=== PATIENT | female | born 1950 | race Caucasian/White ===

== ENCOUNTER 2016-04-26 00:08 | Observation (INO) | payer MEDICARE, MEDICAID ==
--- NOTE | 2016-04-26 00:21 | EDPRACDOC ---
- History of Present Illness Onset: SHANK STITCHER HPI: PT COMPLAINS OF SUDDEN ONSET OF "PRESSURE" IN THE LEFT SIDE OF HER CHEST THAT RADIATED UP TO HER NECK AND TEETH, STATES PAIN WAS SEVERE, ASSOC WITH SOBR AND NAUSEA. PT HAS NO HX OF CAD, HAD STRESS TEST IN JULY 2015 THAT WAS "NORMAL", EMS GAVE ASA X 4, PT STATES PAIN NOW 09/05. Chest Pain Location: Reports: Left Chest Pain Radiation: Reports: Neck Symptoms Occur: Reports: Suddenly, At Rest Cardiac Risk Factors: Reports: Smoker, Hypertension, Diabetes Cardiac History of: Reports: Similar Pain in Past, Stress Test PE Risk Factors: Reports: None Medications within 24 Hours: Reports: None Prehospital Care: Reports: O2, IV, EKG, Monitor, ASA Pain Came On: Reports: Suddenly Pain Status: Present Now Pain Description: Reports: Pressure Pain Severity: Severe Pain Worsens With: Reports: Nothing Pain Improves With: Reports: Other (ASA) Associated Signs and Symptoms: Reports: SOB, Diaphoretic, Nausea <Deshawn Barrett - Last Filed: 04/26/16 01:49> <Debbie Hatfield - Last Filed: 04/26/16 06:36> - General Information Chief Complaint: Chest Pain Stated Complaint: CHEST PAIN Time Seen by Provider: 04/26/16 00:11 Home Medications: Home Medications CloNIDine (Antihypertensive) [Catapres] 0.1 mg PO DAILY 08/26/15 Escitalopram Oxalate 20 mg PO DAILY 08/26/15 Lisinopril/Hydrochlorothiazide [Lisinopril-Hctz 20-25 mg Tab] 1 each PO DAILY Magnesium 400 mg PO DAILY 08/26/15 MetFORMIN (Immediate Release) [GLUCOPHAGE Immed Release] 500 mg PO DAILY Metoprolol Succinate [Toprol Xl] 100 mg PO DAILY 08/26/15 Omeprazole 40 mg PO DAILY 08/26/15 Ondansetron [Ondansetron Odt] 8 mg PO Q8H PRN 08/26/15 Alprazolam 1 mg PO TID 08/27/15 Gabapentin 300 mg PO TID 08/27/15 Oxycodone HCl [Roxicodone] 5 mg PO Q6 08/27/15 Pramipexole Di-HCl [Pramipexole Dihydrochloride] 1 mg PO DAILY 08/27/15 Escitalopram Oxalate [Lexapro] 20 mg PO DAILY 04/26/16 Multivitamin [One Daily] 1 each PO DAILY 04/26/16 Allergies/Adverse Reactions: Allergies Allergy/AdvReac Type Severity Reaction Status Date / Time codeine Allergy See Verified 04/26/16 00:17 Comments hydromorphone HCl Allergy Nausea/Vomi Verified 04/26/16 00:17 [From Dilaudid] ting ED Past Medical History - History Reviewed Yes Nurses notes reviewed and agree except as marked - Patient Medical History Cardiac History: Reports: Hypertension, Hypercholesterolemia. Denies: Congestive Heart Failure, Heart Attack Respiratory History: Reports: COPD (possible diagnosis. Does not use inhalers.) , Pneumonia. Denies: Pulmonary Embolism GI/ History: Reports: Urinary Tract Infection, Gastroesophageal Reflux. Denies: Ulcer, Diverticulosis Musculoskeletal History: Reports: Arthritis Psychological History: Reports: Depression, Anxiety. Denies: Substance Use Disorder Systemic History: Reports: Cancer (COLON. Stage IV, dx 2012. Dr. Gillette. FOLFOX /Avastin, resection 2012.), Diabetes Surgical History: Reports: Cholecystectomy, Hysterectomy, Tonsillectomy/ Adnoidectomy, Other (Colon cancer resection. Thoracotomy lung mets removed 2013. ) Date of Last Radiation Treatment: NOV 2012 Date of Last Chemotherapy Date: NOV 2012 - Family Medical History Reports: Hypertension, Diabetes, Cancer (Father: colon cancer. Mother: liver cancer.), Cardiac Disorders. Denies: Stroke - Social Medical History Smoking Status: Heavy tobacco smoker (5 or more cigarettes/day or daily pipe/ cigar) (Smoker; previously cigarettes but now only vapor e-cigarettes.) Social History: Denies: Substance Use Disorder ETOH: None Substance Abuse: None <Deshawn Barrett - Last Filed: 04/26/16 01:49> EDM Review of Systems - Review of Systems Constitutional: negative: Chills, Fever Eyes: negative: Blurred Vision, Double Vision Ears: negative: Drainage Throat: negative: Pain Nose: negative: Congestion, Discharge Respiratory: Shortness of Breath. negative: Cough, Wheezing Cardiovascular: Chest Pain. negative: Palpitations Gastrointestinal: Nausea. negative: Diarrhea, Pain, Vomiting Genitourinary: negative: Dysuria, Frequency Neurological: negative: Dizziness, Headache, Numbness, Weakness Musculoskeletal: No Symptoms Reported Integumentary: No Symptoms Reported <Deshawn Barrett - Last Filed: 04/26/16 01:49> - Physical Exam Constitutional: Alert (Awake), No apparent distress Oriented to: Time, Person, Place Last recorded Vital Signs: Oxygen Pulse Oxygen Saturation O2 Device Oxygen Flow Rate Fraction of Inspired Oxygen ( FIO2) - HEENT Head: Normal ( normocephalic) Eye Exam: Normal (PERRL, EOMI, Sclera white) Oropharynx: Normal (Pharynx:Moist without exudate,Gums-no swelling) Tympanic Membrane: Normal ENT EAC: Normal TMJ: Normal Nose: No Symptoms Reported (septum midline) Neck: Normal (FROM, trachea at midline) - Respiratory/Cardiovascular Respiratory: Normal - CTA (BBS clear to auscultation without adventitious sounds ) Cardiovascular: Normal (RRR without murmur, gallop or rub) - GI Auscultation: Normal (NABS) Palpation: Normal (Soft,No rebound or guarding, non distended) Tenderness: Non tender Key's Sign: Negative - Musculoskeletal Back: Normal (Non-Tender) Extremities: Normal (Normal tone, Pulses 2+ No cyanosis or edema, FROM) - Integumentary Skin: Normal, Warm, Dry Lymphatics: Normal (no adenopathy) - Neurologic Memory Impaired: Normal Motor Function: Normal (Normal tone, Pulses 2+ No cyanosis or edema, FROM) Cranial Nerve: Normal (CN II-X11 intact sensation, strength 5/5) Cerebellar: Normal Mood Description: Normal Perception: Normal <BarrettDeshawn - Last Filed: 04/26/16 01:49> - Physical Exam Last recorded Vital Signs: Last Vital Signs Temp 98.6 F 04/26/16 00:17 Pulse 69 04/26/16 03:55 Resp 20 04/26/16 03:55 BP 141/64 04/26/16 03:55 Pulse Ox 94 04/26/16 03:55 Oxygen Pulse Oxygen Saturation 94 O2 Device Room Air Oxygen Flow Rate Fraction of Inspired Oxygen ( FIO2) <Debbie Hatfield - Last Filed: 04/26/16 06:36> ED Chest Pain Exam - Respiratory/Cardiovascular Respiratory: Normal - CTA (clear to auscultation without adventitious sounds) Cardiovascular/Chest: Normal (RRR without murmur, gallop or rub) Radial Pulse: Normal Carotid Arteries: Normal Edema: negative: 1+, 2+, 3+, 4+, 5, 6 Chest Palpation: Normal <BarrettDeshawn - Last Filed: 04/26/16 01:49> - Differential Diagnosis Chest wall pain, Costochondritis, Gastritis, Myocardial infarction, Pericarditis , Pancreatitis, Pneumonia - Action Patient received Aspirin within last 24 hours?: Yes ASA given in the ED: Yes Patient received Beta Luis Armando within last 24hrs: Yes - Re-evaluation Re-evaluation 1 Re-evaluation Time: 01:13 (PAIN NOW 05/08, PT HAS NOT BEEN ON ORAL CHEMO FOR SEVERAL WEEKS, STATES IS SUPPOSED TO START BACK NEXT WEEK) - Results 04/26/16 00:16 04/26/16 00:16 04/26/16 01:13 Laboratory Results - last 24 hr 04/26/16 04/26/16 04/26/16 00:16 00:16 00:16 WBC 7.6 RBC 4.83 Hgb 14.4 Hct 43.7 MCV 90 MCH 29.8 MCHC 32.9 L RDW 15.7 H Plt Count 289 MPV 8.0 Neut % (Auto) 80.0 H Lymph % (Auto) 17.5 [place] % (Auto) 1.6 L Eos % (Auto) 0.1 Baso % (Auto) 0.8 Absolute Neuts (auto) 6.08 Absolute Lymphs (auto) 1.29 PT 9.9 INR 1.0 APTT 26.8 Sodium 136 L Potassium 4.4 Chloride 100 Carbon Dioxide 22 Anion Gap 18 H BUN 14 Creatinine 0.60 Estimated GFR (MDRD) > 60 Glucose 464 H* Calculated Osmolality 283 Calcium 9.6 Total Bilirubin 0.4 AST 42 H ALT 41 Alkaline Phosphatase 127 Troponin I < 0.01 Bzx-H-Lvirwywtsax Pept 267 Total Protein 8.1 Albumin 4.3 Lipase 126 - EKG EKG #1 EKG Time: 00:18 -: Yes EKG interpreted by me Rate: bpm: 101 [place]: Normal Rhythm: ST Block: None Hypertrophy: None ST: Nonsp Comparison: 08/26/15 (NO CHANGE) - Diagnostic Imaging CXR Image interpreted by: Radiologist PORTABLE CHEST 1 VIEW COMPARISON: Chest radiograph performed 08/26/2015, and CT of the chest performed 08/27/2015 FINDINGS: The lungs are well-aerated. Masses at the left lung apex and right lung base appear to have increased in size, measuring 3.1 cm at the left lung apex and 2.4 cm at the right lung base. There is no evidence of pleural effusion or pneumothorax. The cardiomediastinal silhouette is within normal limits. No acute osseous abnormalities are seen. A right-sided chest port is noted ending about the distal SVC. IMPRESSION: Apparent increase in size of left lung apex and right basilar masses, measuring 3.1 cm and 2.4 cm, respectively. These are concerning for worsening metastatic disease, as noted on prior CT from July 2015. Would follow-up with Oncology. These results were called by telephone at the time of interpretation on 04/26/2016 at 1:17 am to DESHAWN ROBLEDO, who verbally acknowledged these results. - Additional Information OLD RECORDS REVIEWED, PT HAD NL CARDIOLITE STRESS TEST IN JULY 2015. DISCUSSED WITH DR HATFIELD, CARE ENDORSED TO HER PENDING RESULTS OF 2ND SET OF CARDIAC ENZYMES, ANTICIPATE DISCHARGE AFTER BLOOD SUGAR CONTROL AND IF 2ND SET OF ENZYMES NEG. <Deshawn Barrett - Last Filed: 04/26/16 01:49> - Results 04/26/16 00:16 04/26/16 00:16 WBC 7.6 xk/uL (3.8-10.8) 04/26/16 00:16 RBC 4.83 xM/uL (4.20-5.40) 04/26/16 00:16 Hgb 14.4 g/dL (12.0-16.0) 04/26/16 00:16 Hct 43.7 % (36-47) 04/26/16 00:16 MCV 90 fL (81-99) 04/26/16 00:16 MCH 29.8 pg (27-32) 04/26/16 00:16 MCHC 32.9 g/dl (33-36) L 04/26/16 00:16 RDW 15.7 % (11.5-14.5) H 04/26/16 00:16 Plt Count 289 xk/uL (130-400) 04/26/16 00:16 MPV 8.0 fL (7.4-10.4) 04/26/16 00:16 Neut % (Auto) 80.0 % (45-76) H 04/26/16 00:16 Lymph % (Auto) 17.5 % (17-44) 04/26/16 00:16 [place] % (Auto) 1.6 % (3-10) L 04/26/16 00:16 Eos % (Auto) 0.1 % (0-5) 04/26/16 00:16 Baso % (Auto) 0.8 % (0-2) 04/26/16 00:16 Absolute Neuts (auto) 6.08 xk/uL (1.7-8.2) 04/26/16 00:16 Absolute Lymphs (auto) 1.29 xk/uL (0.65-4.75) 04/26/16 00:16 PT 9.9 SEC (9.2-11.2) 04/26/16 00:16 INR 1.0 04/26/16 00:16 APTT 26.8 SEC (22-35) 04/26/16 00:16 Sodium 136 mEq/L (137-146) L 04/26/16 00:16 Potassium 4.4 mEq/L (3.5-5.1) 04/26/16 00:16 Chloride 100 mEq/L (98-107) 04/26/16 00:16 Carbon Dioxide 22 mMOL/L (22-33) 04/26/16 00:16 Anion Gap 18 mEq/L (8-16) H 04/26/16 00:16 BUN 14 MG/DL (7-17) 04/26/16 00:16 Creatinine 0.60 MG/DL (0.52-1.04) 04/26/16 00:16 Estimated GFR (MDRD) > 60 mL/min (>=60) 04/26/16 00:16 Glucose 464 MG/DL (70-99) H* 04/26/16 00:16 POC Capillary Glucose 321 MG/DL (70-99) H 04/26/16 02:01 Calculated Osmolality 283 MOs/Kg (270-290) 04/26/16 00:16 Calcium 9.6 MG/DL (8.4-10.2) 04/26/16 00:16 Total Bilirubin 0.4 MG/DL (0.2-1.3) 04/26/16 00:16 AST 42 IU/L (14-36) H 04/26/16 00:16 ALT 41 IU/L (9-52) 04/26/16 00:16 Alkaline Phosphatase 127 IU/L (55-165) 04/26/16 00:16 Troponin I 0.07 ng/mL (<.04) 04/26/16 03:18 Txg-K-Xhgtzngbyfw Pept 267 pg/mL (0-900) 04/26/16 00:16 Total Protein 8.1 G/DL (6.3-8.2) 04/26/16 00:16 Albumin 4.3 G/DL (3.5-5.0) 04/26/16 00:16 Lipase 126 U/L (23-300) 04/26/16 00:16 Lab Results 04/26/16 04/26/16 04/26/16 03:18 02:01 00:16 WBC RBC Hgb Hct MCV MCH MCHC RDW Plt Count MPV Neut % (Auto) Lymph % (Auto) [place] % (Auto) Eos % (Auto) Baso % (Auto) Absolute Neuts (auto) Absolute Lymphs (auto) PT 9.9 INR 1.0 APTT 26.8 Sodium Potassium Chloride Carbon Dioxide Anion Gap BUN Creatinine Estimated GFR (MDRD) Glucose POC Capillary Glucose 321 H Calculated Osmolality Calcium Total Bilirubin AST ALT Alkaline Phosphatase Troponin I 0.07 Sfs-I-Djkoeylxfzj Pept Total Protein Albumin Lipase 04/26/16 04/26/16 00:16 00:16 WBC 7.6 RBC 4.83 Hgb 14.4 Hct 43.7 MCV 90 MCH 29.8 MCHC 32.9 L RDW 15.7 H Plt Count 289 MPV 8.0 Neut % (Auto) 80.0 H Lymph % (Auto) 17.5 [place] % (Auto) 1.6 L Eos % (Auto) 0.1 Baso % (Auto) 0.8 Absolute Neuts (auto) 6.08 Absolute Lymphs (auto) 1.29 PT INR APTT Sodium 136 L Potassium 4.4 Chloride 100 Carbon Dioxide 22 Anion Gap 18 H BUN 14 Creatinine 0.60 Estimated GFR (MDRD) > 60 Glucose 464 H* POC Capillary Glucose Calculated Osmolality 283 Calcium 9.6 Total Bilirubin 0.4 AST 42 H ALT 41 Alkaline Phosphatase 127 Troponin I < 0.01 Kjm-U-Dlafsngjwpy Pept 267 Total Protein 8.1 Albumin 4.3 Lipase 126 Laboratory Results - last 24 hr 04/26/16 04/26/16 04/26/16 00:16 00:16 00:16 WBC 7.6 RBC 4.83 Hgb 14.4 Hct 43.7 MCV 90 MCH 29.8 MCHC 32.9 L RDW 15.7 H Plt Count 289 MPV 8.0 Neut % (Auto) 80.0 H Lymph % (Auto) 17.5 [place] % (Auto) 1.6 L Eos % (Auto) 0.1 Baso % (Auto) 0.8 Absolute Neuts (auto) 6.08 Absolute Lymphs (auto) 1.29 PT 9.9 INR 1.0 APTT 26.8 Sodium 136 L Potassium 4.4 Chloride 100 Carbon Dioxide 22 Anion Gap 18 H BUN 14 Creatinine 0.60 Estimated GFR (MDRD) > 60 Glucose 464 H* POC Capillary Glucose Calculated Osmolality 283 Calcium 9.6 Total Bilirubin 0.4 AST 42 H ALT 41 Alkaline Phosphatase 127 Troponin I < 0.01 Umt-G-Miwkzowovvb Pept 267 Total Protein 8.1 Albumin 4.3 Lipase 126 04/26/16 04/26/16 02:01 03:18 WBC RBC Hgb Hct MCV MCH MCHC RDW Plt Count MPV Neut % (Auto) Lymph % (Auto) [place] % (Auto) Eos % (Auto) Baso % (Auto) Absolute Neuts (auto) Absolute Lymphs (auto) PT INR APTT Sodium Potassium Chloride Carbon Dioxide Anion Gap BUN Creatinine Estimated GFR (MDRD) Glucose POC Capillary Glucose 321 H Calculated Osmolality Calcium Total Bilirubin AST ALT Alkaline Phosphatase Troponin I 0.07 Ust-X-Dmwknaeqdqe Pept Total Protein Albumin Lipase Laboratory Results 04/26/16 00:16 04/26/16 00:16 - Diagnostic Imaging Other Image interpreted by: Radiologist CT CHEST: 1. No evidence of pulmonary embolus. 2. Enlarging multilobulated lung masses seen bilaterally, measuring up to 3.4 cm in size. These are compatible with worsening metastatic disease from the patient's colon cancer. 3. Diffuse coronary artery calcifications seen. <Debbie Hatfield - Last Filed: 04/26/16 06:36> <Deshawn Barrett - Last Filed: 04/26/16 01:49> - Departure Yes I personally saw and evaluated the patient. Disposition: Admit IP To This Hospital Education/Counseling Given To: Patient, Family Member Education/Counseling Given Regarding: Diagnosis, Treatment Decision to Admit Time: 04:00 Decision to admit date: 04/26/16 Decision to admit: from ED - Physician Consulted Hospitalist Provider Called: Abner Brown <Debbie Hatfield - Last Filed: 04/26/16 06:36> - Departure Condition: Stable Final Diagnosis: Chest pain, Diabetes mellitus type 2, uncontrolled, RUIZ ZONE TROPONIN, Metastatic colon cancer in female, Coronary artery calcification seen on CT scan , WORSENING OF LUNG METS
[2016-04-26] MEDS ORDERED: METOPROLOL TARTRATE 25 MG TAB PO ONE (00:22)
[2016-04-26] MEDS ORDERED: SODIUM CHLORIDE 0.9% 10 ML FLUSH FLUSH PRN (00:22)
[2016-04-26] MEDS ORDERED: NITROGLYCERINE 2 % OINTMENT PACK TOP ONE (00:22)
[2016-04-26 00:33] LABS: AUTOMATED BASOPHIL 0.8 % (0-2); AUTOMATED EOSINOPHIL 0.1 % (0-5); AUTOMATED LYMPH 17.5 % (17-44); AUTOMATED MONOCYTE 1.6 % (3-10)
[2016-04-26 00:42] LABS: BLOOD UREA NITROGEN 14 MG/DL (7-17); CALCIUM 9.6 MG/DL (8.4-10.2); CALCULATED OSMOLALITY 283 MOs/Kg (270-290); CHLORIDE 100 mEq/L (98-107); SODIUM LEVEL 136 mEq/L (137-146); TOTAL PROTEIN 8.1 G/DL (6.3-8.2)
[2016-04-26] MEDS ORDERED: REGULAR INSULIN 100 UNITS/ML - 3 ML VIAL IV ONE ×2 (00:47→03:01)
[2016-04-26 00:49] LABS: GLUCOSE 464 MG/DL (70-99)
[2016-04-26 00:50] LABS: PARTIAL THROMB. TIME 26.8 SEC (22-35)
--- NOTE | 2016-04-26 01:20 | DIRPT ---
CLINICAL DATA: Acute onset of left-sided chest pressure, radiating to the neck. Shortness of breath and nausea. Initial encounter. EXAM: PORTABLE CHEST 1 VIEW COMPARISON: Chest radiograph performed 08/26/2015, and CT of the chest performed 08/27/2015 FINDINGS: The lungs are well-aerated. Masses at the left lung apex and right lung base appear to have increased in size, measuring 3.1 cm at the left lung apex and 2.4 cm at the right lung base. There is no evidence of pleural effusion or pneumothorax. The cardiomediastinal silhouette is within normal limits. No acute osseous abnormalities are seen. A right-sided chest port is noted ending about the distal SVC. IMPRESSION: Apparent increase in size of left lung apex and right basilar masses, measuring 3.1 cm and 2.4 cm, respectively. These are concerning for worsening metastatic disease, as noted on prior CT from July 2015. Would follow-up with Oncology. These results were called by telephone at the time of interpretation on 04/26/2016 at 1:17 am to BIBIANA ROBLEDO, who verbally acknowledged these results. Electronically Signed By: Dimitris Grey M.D. On: 04/26/2016 01:17
--- NOTE | 2016-04-26 04:13 | HISTPHYS ---
- Chief Complaint chest pain - History of Present Illness PRIMARY CARE PROVIDER: Sunita Burgos and Desiree Stephens at [facility] HPI: The patient is a 65-year-old woman with colon cancer, diabetes, smoker, hypertension, who presents with acute chest pain. She reports that last night ( several hours ago) she developed severe chest pain and said "it took my breath away." She had diaphoresis and shortness of breath with the chest pain. The chest pain was so severe that she could not even stand up. Onset: overnight. Duration: intermittent. Location: substernal. Radiation: to neck and jaw. Character: 12/06. Pressure and dull sensation. Alleviated by: Nothing. Exacerbated by: Nothing. Associated Symptoms: Shortness of breath and diaphoresis. No palpitations. She reports she has had a "cold" for about 2 months, with coughing productive of yellow sputum and dyspnea on exertion, but this shortness of breath today was much different and more severe. Treatments: none at home except usual medications. Given aspirin 81 mg x 4 tabs by EMS prior to arrival. The patient admits that she has colon cancer with history of mets to the lungs, for which she had a thoracotomy in 2013. She had been followed at [facility] for her oncology care, and was taking an oral chemotherapeutic agent until 01/2015, when she stopped it on her own. She said she stopped it because it made her feel bad, and she wanted to live life, go see her friends in [place]. She just never started the medication back and has been off of it ever since. She states she would like to restart treatment for her colon cancer and would like to establish care with Dr. Gonzalez as her oncologist. - Medical History Cardiac History: Reports: Hypertension, Hypercholesterolemia Respiratory History: Reports: COPD (possible diagnosis. Does not use inhalers.) , Pneumonia (and resection of lung mets from both lungs 2013.) GI/ History: Reports: Urinary Tract Infection, Gastroesophageal Reflux Musculoskeletal History: Reports: Arthritis Systemic History: Reports: Cancer (COLON. Stage IV, dx 2012. FOLFOX/Avastin, resection 2012.), Diabetes (Type 2) Psychological History: Reports: Depression, Anxiety. Denies: Substance Use Disorder OTHER HISTORY: Restless Leg Syndrome Colon cancer: Stage IV, diagnosed 2012. Followed by [facility] in past but stopped following up and stopped her medication. FOLFOX/Avastin, then resection 2012. Residual low grade adenocarcinoma with 04/08 nodes positive. Lung metastasis. Thoracotomy with resection of 3 pulmonary nodules 2013. * 2 sections of lung removed on one side and 1 on other removed; tumors. 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 - Surgical History Reports: Cholecystectomy, Hysterectomy, Tonsillectomy/Adnoidectomy, Other ( Colon cancer resection. Thoracotomy B/L lung mets removed 2013.) - Medictions/Allergies Allergies codeine Allergy (Verified 04/26/16 00:17) See Comments "WEAK" hydromorphone HCl [From Dilaudid] Allergy (Verified 04/26/16 00:17) Nausea/Vomiting Current Medication List: Reviewed Home Medications Capecitabine [Xeloda] 500 mg PO .ASDIRECTED 08/26/15 Citalopram Hydrobromide [Citalopram HBr] 40 mg PO DAILY 08/26/15 CloNIDine (Antihypertensive) [Catapres] 0.1 mg PO DAILY 08/26/15 Escitalopram Oxalate 20 mg PO DAILY 08/26/15 Lisinopril/Hydrochlorothiazide [Lisinopril-Hctz 20-25 mg Tab] 1 each PO DAILY Magnesium 400 mg PO DAILY 08/26/15 MetFORMIN (Immediate Release) [GLUCOPHAGE Immed Release] 500 mg PO DAILY Metoprolol Succinate [Toprol Xl] 100 mg PO DAILY 08/26/15 Omeprazole 40 mg PO DAILY 08/26/15 Ondansetron [Ondansetron Odt] 8 mg PO Q8H PRN 08/26/15 Trimethoprim-Sulfamethoxazole [Septra DS] 1 tabs PO BID 08/26/15 Alprazolam 1 mg PO TID 08/27/15 Gabapentin 300 mg PO TID 08/27/15 Oxycodone HCl [Roxicodone] 5 mg PO Q6 08/27/15 Pramipexole Di-HCl [Pramipexole Dihydrochloride] 1 mg PO DAILY 08/27/15 - Family History Reports: Hypertension, Diabetes, Cancer (Father: colon cancer. Mother: liver cancer.), Cardiac Disorders. Denies: Stroke - Social History Smoking Status: Heavy tobacco smoker (5 or more cigarettes/day or daily pipe/ cigar) (Smoker; previously cigarettes but now only vapor e-cigarettes.) Social History: Denies: Alcohol Use, Substance Use Disorder - Review of Systems GENERAL: No Fever, chills. Positive for diaphoresis. Positive for fatigue/ malaise. HEENT: No ear pain or discharge. No nasal bleeding but has nasal discharge. No throat pain or swelling. No eye pain or eye redness. RESPIRATORY: Cough, wheezing, and shortness of breath. CARDIOVASCULAR: Chest pain. No palpitations. GI: Chronic diarrhea. No abdominal pain, nausea, vomiting, constipation, or bloody stool. NEUROLOGICAL: No headache or focal weakness. INTEGUMENT: no rashes, itching, or lesions. LYMPHATIC SYSTEM: no lymph node swelling or pain. MUSCULOSKELETAL: no pain or joint swelling. GENITOURINARY: No dysuria or hematuria. ENDOCRINE: No polyuria but has polydipsia. HEME: No chronic anemia, bleeding, or easy bruising. - Physical Exam Vital Signs: Initial Vitals Temperature 98.6 F 04/26/16 00:17 Pulse Rate 104 04/26/16 00:17 Respiratory Rate 22 04/26/16 00:17 Blood Pressure 184/74 H 04/26/16 00:17 Pulse Oxygen Saturation 94 04/26/16 00:17 Vital Signs - 24 hr 04/26/16 04/26/16 04/26/16 00:17 00:30 00:45 Temperature 98.6 F Pulse Rate 104 89 87 Respiratory 22 20 20 Rate Blood Pressure 184/74 H 155/67 163/63 Pulse Oxygen 94 93 93 Saturation 04/26/16 04/26/16 04/26/16 01:00 01:15 01:46 Temperature Pulse Rate 87 97 77 Respiratory 20 20 20 Rate Blood Pressure 164/67 162/72 138/67 Pulse Oxygen 93 94 94 Saturation 04/26/16 04/26/16 04/26/16 02:03 02:34 03:18 Temperature Pulse Rate 74 65 77 Respiratory 20 20 20 Rate Blood Pressure 149/69 111/58 L 136/59 L Pulse Oxygen 95 94 94 Saturation 04/26/16 03:55 Temperature Pulse Rate 69 Respiratory 20 Rate Blood Pressure 141/64 Pulse Oxygen 94 Saturation Weight: 92 kg Height: 5 feet 5 inches BMI: 33.8 - Other Exam Other Exam Findings: GENERAL: Ill-appearing, well nourished, no acute distress. HEENT: Normocephalic, atraumatic; pupils equal and round. Nares patent, without discharge or bleeding. No oropharyngeal lesions or erythema. Mucous membranes are dry. NECK: is supple, no masses, trachea midline. Large neck circumference. RESPIRATORY: Clear to auscultation bilaterally. Chest wall movements are symmetric. No use of accessory muscles to breathe. Intermittent tachypnea. Decreased breath sounds bilaterally. Intermittent wheezing. Scattered coarse breath sounds. CARDIOVASCULAR: Normal S1, S2. No murmurs, rubs, or gallops. PMI non-displaced. Carotids: no carotid bruits. No bradycardia or tachycardia. DP pulses 2+ bilaterally. GI: soft, non-tender, non-distended, normal active bowel sounds. No hepatosplenomegaly. INTEGUMENT: Clean, dry, and intact. No rashes. No lesions. MUSCULOSKELETAL: Moving all extremities. No cyanosis. No clubbing. Edema: none bilaterally. NEUROLOGICAL: Cranial nerves 2-12 grossly intact. Motor 5/5 throughout. Reflexes : 2+ bilaterally. Babinski: toes downgoing bilaterally. Intact Finger to nose. Sensory grossly intact to light touch. Intact rapid alternating movements bilaterally. No pronator drift. PSYCHIATRIC: Fully oriented. Normal and appropriate affect. LYMPHATIC: No cervical lymphadenopathy. No supraclavicular lymphadenopathy. - Lab Results Laboratory Results - last 24 hr 04/26/16 04/26/16 04/26/16 00:16 00:16 00:16 WBC 7.6 RBC 4.83 Hgb 14.4 Hct 43.7 MCV 90 MCH 29.8 MCHC 32.9 L RDW 15.7 H Plt Count 289 MPV 8.0 Neut % (Auto) 80.0 H Lymph % (Auto) 17.5 [place]asta % (Auto) 1.6 L Eos % (Auto) 0.1 Baso % (Auto) 0.8 Absolute Neuts (auto) 6.08 Absolute Lymphs (auto) 1.29 PT 9.9 INR 1.0 APTT 26.8 Sodium 136 L Potassium 4.4 Chloride 100 Carbon Dioxide 22 Anion Gap 18 H BUN 14 Creatinine 0.60 Estimated GFR (MDRD) > 60 Glucose 464 H* POC Capillary Glucose Calculated Osmolality 283 Calcium 9.6 Total Bilirubin 0.4 AST 42 H ALT 41 Alkaline Phosphatase 127 Troponin I < 0.01 Awj-C-Vqxhgzikglf Pept 267 Total Protein 8.1 Albumin 4.3 Lipase 126 04/26/16 04/26/16 02:01 03:18 WBC RBC Hgb Hct MCV MCH MCHC RDW Plt Count MPV Neut % (Auto) Lymph % (Auto) [place]asta % (Auto) Eos % (Auto) Baso % (Auto) Absolute Neuts (auto) Absolute Lymphs (auto) PT INR APTT Sodium Potassium Chloride Carbon Dioxide Anion Gap BUN Creatinine Estimated GFR (MDRD) Glucose POC Capillary Glucose 321 H Calculated Osmolality Calcium Total Bilirubin AST ALT Alkaline Phosphatase Troponin I 0.07 Oeg-V-Anvrgmbbidz Pept Total Protein Albumin Lipase - Diagnostic Findings EK bpm. Sinus tachycardia. Incomplete right bundle branch block. Cannot rule out inferior infarct, age undetermined. T wave inversion with slight ST depression in 3. Minimal ST depression in aVF, V4, and V5. Reviewed EKG personally. Chest x-ray, viewed personally: EXAM: PORTABLE CHEST 1 VIEW COMPARISON: Chest radiograph performed 08/26/2015, and CT of the chest performed 08/27/2015 FINDINGS: The lungs are well-aerated. Masses at the left lung apex and right lung base appear to have increased in size, measuring 3.1 cm at the left lung apex and 2.4 cm at the right lung base. There is no evidence of pleural effusion or pneumothorax. The cardiomediastinal silhouette is within normal limits. No acute osseous abnormalities are seen. A right-sided chest port is noted ending about the distal SVC. IMPRESSION: Apparent increase in size of left lung apex and right basilar masses, measuring 3.1 cm and 2.4 cm, respectively. These are concerning for worsening metastatic disease, as noted on prior CT from July 2015. Would follow-up with Oncology. These results were called by telephone at the time of interpretation on 04/26/2016 at 1:17 am to BIBIANA ROBLEDO, who verbally acknowledged these results. - Assessment (1) Chest pain R07.9 - CHEST PAIN, UNSPECIFIED Acute Present on Admission: Yes Qualifiers: Chest pain type: unspecified Ischemic chest pain type: I Qualified Code(s ): R07.9 - Chest pain, unspecified Rule out myocardial infarction. Will also check D-dimer and if positive obtain CTA; patient is at increased risk of PE due to neoplastic disease. Plan: Obtain cardiac enzymes x 3. Place patient on telemetry. Give patient oxygen, aspirin. Give nitroglycerin, and morphine as needed for chest pain. Give statin. Stress test has been ordered for the morning. Patient has been advised, if the stress test is negative, to follow up with the primary care provider for evaluation of other potential causes of the chest pain. (2) Neoplasm of uncertain behavior of lung D38.1 - NEOPLASM OF UNCERTAIN BEHAVIOR OF TRACHEA, BRONCHUS AND LUNG Acute Present on Admission: Yes Enlarging and worsening masses noted in lungs on chest x-ray. IMPRESSION: Apparent increase in size of left lung apex and right basilar masses, measuring 3.1 cm and 2.4 cm, respectively. These are concerning for worsening metastatic disease, as noted on prior CT from July 2015. Would follow-up with Oncology. Plan: Follow up with Oncology. 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 Check fingerstick blood sugars q ac and hs. Sliding scale insulin. Ordered A1c and urine microalbumin. (4) Metastatic colon cancer in female C78.5 - SECONDARY MALIGNANT NEOPLASM OF LARGE INTESTINE AND RECTUM Acute Present on Admission: Yes Plan: Continue follow-up with Oncology. Patient would like to establish care with Dr. Gonzalez - need to obtain an appointment for her. - Plan NOTE: CTA OF CHEST IS ORDERED BUT HAS NOT RESULTED AT THE TIME OF PATIENT'S ADMISSION. WILL RULE OUT PE. Case Care Discussed with: Patient, Nursing Staff
[2016-04-26] MEDS ORDERED: Pharmacy Review for Metformin - IV Contrast Given SCH (05:00)
--- NOTE | 2016-04-26 06:33 | DIRPT ---
CLINICAL DATA: Acute onset of generalized chest pain. Elevated D-dimer. Known stage IV colon cancer, with lung metastases. Initial encounter. EXAM: CT ANGIOGRAPHY CHEST WITH CONTRAST TECHNIQUE: Multidetector CT imaging of the chest was performed using the standard protocol during bolus administration of intravenous contrast. Multiplanar CT image reconstructions and MIPs were obtained to evaluate the vascular anatomy. CONTRAST: 70 mL of Isovue 370 IV contrast COMPARISON: CT of the chest performed 08/27/2015, and chest radiograph performed earlier today at 12:39 a.m. FINDINGS: There is no evidence of pulmonary embolus. Enlarging multilobulated masses are noted, with a 3.4 cm mass at the left lung apex, a 2.8 cm mass at the right lower lobe, a 2.4 cm mass at the left lower lobe, and additional smaller nodules within the right lung. These are compatible with metastatic disease from the patient's colon cancer. The lungs are otherwise clear. There is no evidence of significant focal consolidation, pleural effusion or pneumothorax. Visualized mediastinal nodes remain normal in size, without evidence of mediastinal lymphadenopathy. No pericardial effusion is identified. The great vessels are grossly unremarkable in appearance. Diffuse coronary artery calcifications are seen. The patient's right-sided chest port is noted ending about the cavoatrial junction. The great vessels are grossly unremarkable in appearance. No axillary lymphadenopathy is seen. The visualized portions of the thyroid gland are unremarkable in appearance. The visualized portions of the liver and spleen are unremarkable. The visualized portions of the pancreas, stomach, adrenal glands and left kidney are within normal limits. No acute osseous abnormalities are seen. Review of the MIP images confirms the above findings. IMPRESSION: 1. No evidence of pulmonary embolus. 2. Enlarging multilobulated lung masses seen bilaterally, measuring up to 3.4 cm in size. These are compatible with worsening metastatic disease from the patient's colon cancer. 3. Diffuse coronary artery calcifications seen. Electronically Signed By: Dimitris Grey M.D. On: 04/26/2016 06:31
[2016-04-26] MEDS ORDERED: NITROGLYCERINE 0.4 MG TAB SL PRN (06:36)
[2016-04-26] MEDS ORDERED: MORPHINE 2 MG/ML INJECTION IV PRN (06:37)
[2016-04-26] MEDS ORDERED: BENZONATATE 100 MG PERLES PO PRN (07:01)
[2016-04-26] MEDS ORDERED: GUAIFEN 100 MG-DEXTROMETH 10 MG PER 5 ML PO PRN (07:01)
[2016-04-26] MEDS ORDERED: ONDANSETRON HCL 4 MG/2 ML VIAL IV PRN (07:01)
[2016-04-26] MEDS ORDERED: TEMAZEPAM 15 MG CAP PO PRN (07:01)
[2016-04-26] MEDS ORDERED: BISACODYL 5 MG TAB PO PRN (07:01)
[2016-04-26] MEDS ORDERED: ACETAMINOPHEN 325 MG SUPP PR PRN (07:01)
[2016-04-26] MEDS ORDERED: SENNA CONCENTRATE TAB PO PRN (07:01)
[2016-04-26] MEDS ORDERED: Aluminum;Magnesium;Simethicone 30 ML UDC PO PRN (07:01)
[2016-04-26] MEDS ORDERED: PROMETHAZINE 25 MG/ML VIAL IV PRN (07:01)
[2016-04-26] MEDS ORDERED: ACETAMINOPHEN 325 MG/TAB TABLET PO PRN (07:01)
[2016-04-26 07:45] VITALS: BMI 34.9
[2016-04-26] MEDS ORDERED: Pharmacy Order Set Alert SCH (08:00)
[2016-04-26] MEDS ORDERED: Vaccine Screening Complete SCH (08:00)
[2016-04-26] MEDS ORDERED: SESTAMIBI 8 MCI V IV ONE (08:57)
[2016-04-26] MEDS ORDERED: ESCITALOPRAM OXALATE 20 MG PO SCH (09:00)
[2016-04-26] MEDS ORDERED: MAGNESIUM 400 MG PO SCH (09:00)
[2016-04-26] MEDS ORDERED: HYDROCHLOROTHIAZIDE 25 MG TAB PO SCH (09:00)
[2016-04-26] MEDS ORDERED: LISINOPRIL 20 MG TAB PO SCH (09:00)
[2016-04-26] MEDS ORDERED: PRAMIPEXOLE DI HCL 1 MG PO SCH (09:00)
[2016-04-26] MEDS ORDERED: MAGNESIUM OXIDE 400 MG TAB PO SCH (09:00)
[2016-04-26] MEDS ORDERED: PRAMIPEXOLE 0.5 MG TAB PO SCH (09:00)
[2016-04-26] MEDS ORDERED: Non-Formulary Medication ITEM (Multivitamin [One Daily] 1 EACH) PO SCH (09:00)
[2016-04-26] MEDS ORDERED: ESCITALOPRAM OXALATE 10 MG TAB PO SCH (09:00)
[2016-04-26] MEDS ORDERED: METOPROLOL (TOPROL-XL) 100 MG TAB PO SCH (09:00)
[2016-04-26] MEDS ORDERED: Non-Formulary Medication ITEM (Omeprazole [Omeprazole] 40 MG) PO SCH (09:00)
[2016-04-26] MEDS ORDERED: ALBUTEROL 6.7 GM MDI INH ONE (10:00)
[2016-04-26] MEDS ORDERED: REGADENOSON 0.4 MG/5 ML SYRINGE IV ONE (10:00)
[2016-04-26] MEDS ORDERED: ALBUTEROL 6.7 GM MDI INH SCH (10:00)
[2016-04-26] MEDS ORDERED: SODIUM CHLORIDE 0.9% 10 ML FLUSH FLUSH ONE (10:00)
--- NOTE | 2016-04-26 11:22 | PCM.STRESS ---
Nuclear stress test (Lexiscan): Indication for procedure: Chest pain. Patient was brought to the stress test room in a fasting state. IV was already inserted. The patient got connected to the desk monitor. Blood pressure was monitored as well as pulse oximetry. Lexiscan was given during in usual fashion. That was followed by injection of radioisotope. Then patient was monitored for about 5 min. Resting heart rate was 66 beats/ min. Resting blood pressure was 130/80 mm of mercury. Resting EKG showed normal sinus rhythm, normal P interval, right bundle branch block, ST segment depression inferior lateral leads.. EKG during the infusion of Lexiscan and shortly after showed deepening of ST segment depressions in inferior lateral leads. Symptoms noted during the infusion and after include shortness of breath. Nuclear assessment: Resting imaging showed defect involving basal and midportion of the inferior wall.. Stress imaging showed defect involving basal and midportion of the inferior wall as well as new defect which was moderate in degree involving apical and mid portion of the anteroseptal wall. Gated imaging revealed normal contractility in all segments. The ejection fraction was 66%. Conclusions: 1. Ischemia involving apical and mid portion of the anteroseptal wall indicating LAD disease in (its midportion). 2. Normal gated images. 3. Normal ejection fraction calculated of 66%. Comments fixed defect involving inferior wall is probably related to diaphragmatic attenuation.
--- NOTE | 2016-04-26 11:37 | PCM.CARDCO ---
Consultation Date: 04/26/16 Requesting Physician: Armaan Calderon Cat Breeder: Jairo Arriola Consult Reason: Chest Pain - History of Present Illness Patient is a 65 years old woman with diabetes diagnosed about year ago, hypertension diagnosed many years ago, dyslipidemia, chronic smoker. In 2012 she was diagnosed with colon cancer colectomy was done after series of chemotherapy and also had some resection of portion of her lung secondary to metastasis. After that she was put on chemotherapy was taking for awhile but eventually decided to stop it since she fell so bed while taking those medications. She did not follow up with Oncology after that. She presented to the hospital because of chest pain. She described pain as heavy sensation like in the chest high will happen when she was sitting down. Pain was worse with taking deep breath and cough. And there was some shortness of breath associated with this sensation. She also described to have exertional burning in the chest that is being on for last couple years lately became a little more frequent she said it happened especially when the weather is cold outside when she tried to call she will get this sensation. She had a stress test done today it was done in form of Lexiscan stress test showed ischemia involving apical and mid portion of the anterior wall. That indicate presence of a known proximal LAD disease. She never had any heart trouble. However she does have multiple risk factor for it. Chief Complaint: chest pain - Past Medical and Surgical History Cardiac History: Reports: Hypertension, Hypercholesterolemia. Denies: Congestive Heart Failure, Heart Attack Respiratory History: Reports: COPD (possible diagnosis. Does not use inhalers.) , Pneumonia (and resection of lung mets from both lungs 2013.). Denies: Pulmonary Embolism GI/ History: Reports: Urinary Tract Infection, Gastroesophageal Reflux. Denies: Ulcer, Diverticulosis Systemic History: Reports: Cancer (COLON. Stage IV, dx 2012. FOLFOX/Avastin, resection 2012.), Diabetes (Type 2) Musculoskeletal History: Reports: Arthritis Psychological History: Reports: Depression, Anxiety. Denies: Alcoholism, Substance Use Disorder Neurological History: Denies: Cerebrovascular Accident Past Surgical History: Reports: Appendectomy, Cholecystectomy, Hysterectomy, Tonsillectomy/Adnoidectomy, Other (Colon cancer resection. Thoracotomy B/L lung mets removed 2013.) Allergies codeine Allergy (Verified 04/26/16 00:17) See Comments "WEAK" hydromorphone HCl [From Dilaudid] Allergy (Verified 04/26/16 00:17) Nausea/Vomiting Home Medications CloNIDine (Antihypertensive) [Catapres] 0.1 mg PO DAILY 08/26/15 Escitalopram Oxalate 20 mg PO DAILY 08/26/15 Lisinopril/Hydrochlorothiazide [Lisinopril-Hctz 20-25 mg Tab] 1 each PO DAILY Magnesium 400 mg PO DAILY 08/26/15 MetFORMIN (Immediate Release) [GLUCOPHAGE Immed Release] 500 mg PO DAILY Metoprolol Succinate [Toprol Xl] 100 mg PO DAILY 08/26/15 Omeprazole 40 mg PO DAILY 08/26/15 Ondansetron [Ondansetron Odt] 8 mg PO Q8H PRN 08/26/15 Alprazolam 1 mg PO TID 08/27/15 Gabapentin 300 mg PO TID 08/27/15 Oxycodone HCl [Roxicodone] 5 mg PO Q6 08/27/15 Pramipexole Di-HCl [Pramipexole Dihydrochloride] 1 mg PO DAILY 08/27/15 Escitalopram Oxalate [Lexapro] 20 mg PO DAILY 04/26/16 Multivitamin [One Daily] 1 each PO DAILY 04/26/16 - Social History Travel Outside of [place] in the Last 3 Months?: No Smoking Status: Heavy tobacco smoker (5 or more cigarettes/day or daily pipe/ cigar) (Smoker; previously cigarettes but now only vapor e-cigarettes.) Social History: Denies: Alcohol Use, Substance Use Disorder - Family History Reports: Hypertension, Diabetes, Cancer (Father: colon cancer. Mother: liver cancer.), Cardiac Disorders. Denies: Stroke - Review of Systems Constitutional: negative: Chills, Fever - Physical Exam Constitutional: Alert (Awake), No apparent distress Oriented to: Time, Person, Place Exam: Last Vital Signs Temp 98.2 F 04/26/16 11:24 Pulse 72 04/26/16 11:24 Resp 18 04/26/16 11:24 BP 173/65 04/26/16 11:24 Pulse Ox 97 04/26/16 11:24 Intake & Output 04/25/16 04/26/16 04/26/16 23:59 07:59 15:59 Patient's weight 89.403 kg - HEENT Head: Normal ( normocephalic) Eye: Normal (PERRL, EOMI, Sclera white) Oropharynx: Normal (Pharynx:Moist without exudate,Gums-no swelling) Tympanic Membrane: Normal ENT EAC: Normal TMJ: Normal Nose: No Symptoms Reported (septum midline) - Respiratory/Cardiovascular Respiratory: Normal - CTA (clear to auscultation without adventitious sounds) - GI Auscultation: Normal (NABS) Palpation: Normal (Soft,No rebound or guarding, non distended) Tenderness: Non tender - Musculoskeletal Back: Normal (Non-Tender) Extremities: Normal (Normal tone, Pulses 2+ No cyanosis or edema, FROM) - Integumentary Skin: Normal, Warm, Dry Lymphatics: Normal (no adenopathy) - Neurologic Memory Impaired: Normal Cerebellar: Normal Mood Description: Normal Perception: Normal - Other Exam Other Exam Findings: General Appearance: Well developed. Well nourished. In no acute distress. Lungs: Chest was not overinflated. Clear to auscultation. Poor air entry, few rhonchi Cardiovascular: Jugular Venous Distention: JVD not increased. Heart Rate And Rhythm: Normal. Tones are very distant. Heart Sounds: Normal. Murmurs: No murmurs were heard. Carotid Arteries: Carotid pulses were normal. No bruit in the carotid artery. Edema: Not present. Lower extremities pulses normal (including femoral popliteal and dorsalis pedis) . Musculoskeletal System: General/bilateral: No cyanosis of the fingers. Neurological: Oriented to time, place, and person. Nails: No clubbing of the fingernails. - Lab Results Laboratory Tests 04/26/16 04/26/16 04/26/16 00:16 00:16 00:16 WBC 7.6 RBC 4.83 Hgb 14.4 Hct 43.7 MCV 90 MCH 29.8 MCHC 32.9 L RDW 15.7 H Plt Count 289 MPV 8.0 Neut % (Auto) 80.0 H Lymph % (Auto) 17.5 Mcculloch % (Auto) 1.6 L Eos % (Auto) 0.1 Baso % (Auto) 0.8 Absolute Neuts (auto) 6.08 Absolute Lymphs (auto) 1.29 PT 9.9 INR 1.0 APTT 26.8 D-Dimer Quant (PE/DVT) Sodium 136 L Potassium 4.4 Chloride 100 Carbon Dioxide 22 Anion Gap 18 H BUN 14 Creatinine 0.60 Estimated GFR (MDRD) > 60 Glucose 464 H* POC Capillary Glucose Calculated Osmolality 283 Calcium 9.6 Total Bilirubin 0.4 AST 42 H ALT 41 Alkaline Phosphatase 127 Troponin I < 0.01 Ohv-L-Vbvrazslxgx Pept 267 Total Protein 8.1 Albumin 4.3 Lipase 126 04/26/16 04/26/16 04/26/16 02:01 03:18 04:17 WBC RBC Hgb Hct MCV MCH MCHC RDW Plt Count MPV Neut % (Auto) Lymph % (Auto) [place]ull[place] % (Auto) Eos % (Auto) Baso % (Auto) Absolute Neuts (auto) Absolute Lymphs (auto) PT INR APTT D-Dimer Quant (PE/DVT) 760 H Sodium Potassium Chloride Carbon Dioxide Anion Gap BUN Creatinine Estimated GFR (MDRD) Glucose POC Capillary Glucose 321 H Calculated Osmolality Calcium Total Bilirubin AST ALT Alkaline Phosphatase Troponin I 0.07 Qor-I-Cagxfvrekpq Pept Total Protein Albumin Lipase 04/26/16 04/26/16 04:52 06:16 WBC RBC Hgb Hct MCV MCH MCHC RDW Plt Count MPV Neut % (Auto) Lymph % (Auto) [place] % (Auto) Eos % (Auto) Baso % (Auto) Absolute Neuts (auto) Absolute Lymphs (auto) PT INR APTT D-Dimer Quant (PE/DVT) Sodium Potassium Chloride Carbon Dioxide Anion Gap BUN Creatinine Estimated GFR (MDRD) Glucose POC Capillary Glucose 257 H Calculated Osmolality Calcium Total Bilirubin AST ALT Alkaline Phosphatase Troponin I 0.12 Pwx-M-Oujwbgwgupu Pept Total Protein Albumin Lipase - Diagnostic Findings Electrocardiogram showed normal sinus rhythm, normal P interval, right bundle branch block, ST segment depression inferior lateral leads. - Assessment/Plan (1) Angina I20.9 - ANGINA PECTORIS, UNSPECIFIED Acute Comment: Lady presented with pain in the chest however pain was somewhat atypical. My conversation with her reveal however fairly typical angina pectoris. Being slowly getting worse. Any time she try to walk his patient called where she will get burning in the chest. When she did have a stress test done today stress test showed ischemia involving apical midportion of the anterior wall indicating presence of known proximal LAD disease. I had a long discussion about what to do in this situation. Will talk about 2 options medical therapy versus cardiac catheterization. Considering the fact that she does have metastasis of her colon cancer to her lungs as well as some issue of previously noncompliance I would favor medical therapy 1st. Will ask her to start taking baby aspirin every single day. I will put her on ranolazine. She required statin as well as in the office within week O2 and see how she does. She is scheduled already to see oncologist Dr. Gonzalez to talk about options for her primary problem which undoubtedly is colon cancer with metastasis to her lungs. (2) Coronary artery disease I25.10 - ATHSCL HEART DISEASE OF [place] CORONARY ARTERY W/O ANG PCTRS Acute C N A Comment: As proven by calcification of coronary arteries seen on CT scan as well as abnormal stress test showing ischemia involving apical midportion of the anterior wall. Lady prefers medical therapy and I agree with this approach at least initially secondary to her primary problem which is colon cancer with metastasis to her lungs. Will try to modify her risk factors and treat her appropriately. (3) Hypertension I10 - ESSENTIAL (PRIMARY) HYPERTENSION Acute H Comment: Blood pressure appears to be well control medications. (4) Diabetes mellitus type 2, uncontrolled E11.65 - TYPE 2 DIABETES MELLITUS WITH HYPERGLYCEMIA Acute without complication D D P D without alf use L C E11.65 - Type 2 diabetes mellitus with hyperglycemia Comment: The being addressed by primary care physicians and hospitalist team. Still not adequately controlled. (5) Metastatic colon cancer in female C78.5 - SECONDARY MALIGNANT NEOPLASM OF LARGE INTESTINE AND RECTUM Acute Comment: She is scheduled to see oncologist Dr. Gonzalez to talk about options.
[2016-04-26] MEDS ORDERED: OXYCODONE HCL 5 MG TABLET PO SCH (12:00)
[2016-04-26] MEDS ORDERED: RANOLAZINE 500 MG EXT RELEASE TAB PO SCH (12:00)
[2016-04-26] MEDS ORDERED: VITAMINS, MULTIPLE CAP PO SCH (12:00)
[2016-04-26] MEDS ORDERED: ALPRAZOLAM 0.5 MG TAB PO SCH (14:00)
[2016-04-26] MEDS ORDERED: GABAPENTIN 300 MG CAP PO SCH (14:00)
[2016-04-26] MEDS ORDERED: ALPRAZOLAM 1 MG PO SCH (14:00)
--- NOTE | 2016-04-26 14:49 | PCM.DCS92 ---
- Final/Secondary Discharge Diagnosis (1) Chest pain Acute R07.9 - CHEST PAIN, UNSPECIFIED Present on Admission: Yes unspecified I R07.9 - Chest pain, unspecified Comment: Stress test with apical and mid anterior septal wall ischemia. Preserved EF and normal wall motion. Given progression of malignancy Cardiology has recommended medical therapy and close outpatient follow-up. We have added aspirin and Ranexa to her medication regimen. Dr. Arriola will see her in the next week in the office (2) Coronary artery disease Acute I25.10 - ATHSCL HEART DISEASE OF [place] CORONARY ARTERY W/O ANG PCTRS Present on Admission: Yes [place] artery [place] heart with stable angina I25.118 - Atherosclerotic heart disease of [place] coronary artery with other forms of angina pectoris Comment: Medical therapy as above. Discussed with Dr. Arriola and patient is okay to discharge home and follow as outpatient. (3) Diabetes mellitus type 2, uncontrolled Acute E11.65 - TYPE 2 DIABETES MELLITUS WITH HYPERGLYCEMIA without complication D D P D without correction use L C E11.65 - Type 2 diabetes mellitus with hyperglycemia Comment: Blood sugars elevated. Increase metformin to twice daily and add Glucotrol. (4) Hypertension Acute I10 - ESSENTIAL (PRIMARY) HYPERTENSION Present on Admission: Yes essential hypertension I10 - Essential (primary) hypertension Comment: Continue medications and titrate as able (5) Metastatic colon cancer in female Acute C78.5 - SECONDARY MALIGNANT NEOPLASM OF LARGE INTESTINE AND RECTUM Present on Admission: Yes Comment: CT chest shows progression of known metastatic lung lesions. Discussed with Dr. Gonzalez who will arrange follow-up with her in the office this week (6) Neoplasm of uncertain behavior of lung Acute D38.1 - NEOPLASM OF UNCERTAIN BEHAVIOR OF [place], BRONCHUS AND LUNG Present on Admission: Yes Comment: She stopped following up approximately 1 year ago. X-ray show progression of her metastatic disease. Discussed case with Dr. Gonzalez who will see her in the office this week in follow-up Discharge Disposition: Home Discharge Condition: Improved Cognitive Discharge Status: Unimpaired Fuctional Discharge Status: Independent Physician Follow up/Referrals: Deshawn Bolton MD [Primary Care Provider] - One Week (hosptial will call with appointment.) Devin Gonzalez MD [Staff Physician] - 1-2 weeks (hospital will call with appointment) Jairo Arriola MD [Staff Physician] - One Week (hospital will call with appointment ) Home Medications / New Prescriptions: New Aspirin [Aspirin, Chewable] 81 mg PO DAILY #30 tab Atorvastatin Calcium [Lipitor] 10 mg PO HS #30 tablet Glipizide Xl [Glucotrol Xl] 5 mg PO 0700 #30 tab Ranolazine [Ranexa] 500 mg PO BID #60 tablet.er Continue Metoprolol Succinate [Toprol Xl] 100 mg PO DAILY Omeprazole 40 mg PO DAILY Lisinopril/Hydrochlorothiazide [Lisinopril-Hctz 20-25 mg Tab] 1 each PO DAILY Magnesium 400 mg PO DAILY Ondansetron [Ondansetron Odt] 8 mg PO Q8H PRN PRN Reason: Nausea Pramipexole Di-HCl [Pramipexole Dihydrochloride] 1 mg PO DAILY Alprazolam 1 mg PO TID Oxycodone HCl [Roxicodone] 5 mg PO Q6 Gabapentin 300 mg PO TID Escitalopram Oxalate [Lexapro] 20 mg PO DAILY Multivitamin [One Daily] 1 each PO DAILY Changed MetFORMIN (Immediate Release) [GLUCOPHAGE Immed Release] 500 mg PO BID #60 tablet Discontinued CloNIDine (Antihypertensive) [Catapres] 0.1 mg PO DAILY O2 Device: Room Air Diet at Discharge: As Tolerated, Cardiac Activity: No Restrictions, As Tolerated Call Office For: Worsening Symptoms, Fever over 101 F, Pain Uncontrolled By Meds Discontinue use of:: Alcohol, All Illegal Substances, All Types of Tobacco - DC Summary Notes Hospital Course Note:: Discharge summary on patient named NATALIO REARDON admitted to [facility] on 04/26/16 by Abner Brown MD. Date of discharge is []. Ms Reardon is a pleasant 65-year-old white female with a history of metastatic colon cancer and diabetes who presented to the hospital with complaint of chest pain and associated shortness of breath. Initial enzymes were negative. She underwent CT scanning in the emergency room which showed no evidence of pulmonary embolus but did show progression of metastatic lung lesions. Given her chest pain she was admitted to the hospital under chest pain center protocol and underwent stress testing. Stress test showed areas of reversible ischemia in the apical region and mid anterior septal wall but preserved EF and normal wall motion. Given malignancy Cardiology has recommended a trial of medical therapy 1st. In terms of her colon cancer she has not followed up in more than a year. She is known that her disease has progressed is willing to follow-up with Oncology as an outpatient. I discussed her case with Dr. Gonzalez who will arrange for her to follow up with him in the office the next week. At the time of discharge she feels well. We have started her on an aspirin a day and Ranexa in addition to her home medications. She has been mildly hypoxic this hospitalization and will evaluate her for possible home oxygen. We suspect that this is likely related to her metastatic disease. At this point she has reached maximal hospital benefit will be discharged home Total Time: 45 minutes Wound Care Surgical Site: No - Physical Exam Vital Signs: Last Vital Signs Temp 98.2 F 04/26/16 11:24 Pulse 67 04/26/16 12:46 Resp 18 04/26/16 11:24 BP 173/65 04/26/16 11:24 Pulse Ox 97 04/26/16 11:24 Oxygen Pulse Oxygen Saturation 97 O2 Device Nasal Cannula Oxygen Flow Rate 2 Fraction of Inspired Oxygen ( FIO2) Constitutional: No apparent distress, Alert (Awake), Well nourished, Well appearing Oriented to: Time, Person, Place - HEENT Head: Normal ( normocephalic) Eye: Normal (PERRL, EOMI, Sclera white) Oropharynx: Normal (Pharynx:Moist without exudate,Gums-no swelling) Tympanic Membrane: Normal ENT EAC: Normal TMJ: Normal Nose: No Symptoms Reported (septum midline) - Respiratory/Cardiovascular Respiratory: Normal - CTA (clear to auscultation without adventitious sounds) Cardiovascular: Normal - GI Auscultation: Normal (NABS) Palpation: Normal (Soft,No rebound or guarding, non distended) Tenderness: Non tender - Musculoskeletal Back: Normal (Non-Tender) Extremities: Normal (Normal tone, Pulses 2+ No cyanosis or edema, FROM) - Integumentary Skin: Normal, Warm, Dry Lymphatics: Normal (no adenopathy) - Neurologic Memory Impaired: Normal Motor Function: Normal Cranial Nerve: Normal Cerebellar: Normal Mood Description: Normal Thought: Coherent Perception: Normal
[2016-04-26 15:56] VITALS: PULSE 58; TEMP 98.1
[2016-04-26] MEDS ORDERED: HEPARIN 500 UNITS/5 ML (100 UNITS/ML) SYR FLUSH ONE (16:00)
[2016-04-26 16:11] VITALS: BP 100/56
[2016-04-26] MEDS ORDERED: ENOXAPARIN 40 MG/0.4 ML PFS SQ SCH (18:00)
[2016-04-26] MEDS ORDERED: PANTOPRAZOLE 40 MG TAB PO SCH (18:00)
[2016-04-26] MEDS ORDERED: ATORVASTATIN 10 MG TAB PO SCH (21:00)
--- NOTE | 2016-04-27 14:51 | CAPUEKG ---
[place], [place] Test Date: 2016-04-26 Pat Name: NATALIO ALVAREZ Department: Room: 430 Gender: Female Gift Officer: MANNIE PALMER: Requested By: Order Number: Reading MD: Oren Elias Measurements Intervals [place] Rate: 59 P: 39 AK: 144 QRS: 80 QRSD: 112 T: -17 QT: 420 QTc: 415 Interpretive Statements Sinus bradycardia Incomplete right bundle branch block Left atrial enlargement Nonspecific ST and T wave abnormality No change from prior tracing. except slower rate Abnormal ECG Electronically Signed On 04-27-16 14:51:13 EST by Oren Elias <[email or web address] [id number]
--- NOTE | 2016-04-28 09:34 | PCM.CARDCO ---
Consultation Date: 04/26/16 Requesting Physician: Armaan Calderon Assembly Machine Tender: Jairo Arriola Consult Reason: Chest Pain - History of Present Illness Patient is a 65 years old woman with diabetes diagnosed about year ago, hypertension diagnosed many years ago, dyslipidemia, chronic smoker. In 2012 she was diagnosed with colon cancer colectomy was done after series of chemotherapy and also had some resection of portion of her lung secondary to metastasis. After that she was put on chemotherapy was taking for awhile but eventually decided to stop it since she fell so bed while taking those medications. She did not follow up with Oncology after that. She presented to the hospital because of chest pain. She described pain as heavy sensation like in the chest high will happen when she was sitting down. Pain was worse with taking deep breath and cough. And there was some shortness of breath associated with this sensation. She also described to have exertional burning in the chest that is being on for last couple years lately became a little more frequent she said it happened especially when the weather is cold outside when she tried to call she will get this sensation. She had a stress test done today it was done in form of Lexiscan stress test showed ischemia involving apical and mid portion of the anterior wall. That indicate presence of a known proximal LAD disease. She never had any heart trouble. However she does have multiple risk factor for it. Chief Complaint: chest pain - Past Medical and Surgical History Cardiac History: Reports: Hypertension, Hypercholesterolemia. Denies: Congestive Heart Failure, Heart Attack Respiratory History: Reports: COPD (possible diagnosis. Does not use inhalers.) , Pneumonia (and resection of lung mets from both lungs 2013.). Denies: Pulmonary Embolism GI/ History: Reports: Urinary Tract Infection, Gastroesophageal Reflux. Denies: Ulcer, Diverticulosis Systemic History: Reports: Cancer (COLON. Stage IV, dx 2012. FOLFOX/Avastin, resection 2012.), Diabetes (Type 2) Musculoskeletal History: Reports: Arthritis Psychological History: Reports: Depression, Anxiety. Denies: Alcoholism, Substance Use Disorder Neurological History: Denies: Cerebrovascular Accident Past Surgical History: Reports: Appendectomy, Cholecystectomy, Hysterectomy, Tonsillectomy/Adnoidectomy, Other (Colon cancer resection. Thoracotomy B/L lung mets removed 2013.) Allergies codeine Allergy (Verified 04/26/16 00:17) See Comments "WEAK" hydromorphone HCl [From Dilaudid] Allergy (Verified 04/26/16 00:17) Nausea/Vomiting Home Medications CloNIDine (Antihypertensive) [Catapres] 0.1 mg PO DAILY 08/26/15 Escitalopram Oxalate 20 mg PO DAILY 08/26/15 Lisinopril/Hydrochlorothiazide [Lisinopril-Hctz 20-25 mg Tab] 1 each PO DAILY Magnesium 400 mg PO DAILY 08/26/15 MetFORMIN (Immediate Release) [GLUCOPHAGE Immed Release] 500 mg PO DAILY Metoprolol Succinate [Toprol Xl] 100 mg PO DAILY 08/26/15 Omeprazole 40 mg PO DAILY 08/26/15 Ondansetron [Ondansetron Odt] 8 mg PO Q8H PRN 08/26/15 Alprazolam 1 mg PO TID 08/27/15 Gabapentin 300 mg PO TID 08/27/15 Oxycodone HCl [Roxicodone] 5 mg PO Q6 08/27/15 Pramipexole Di-HCl [Pramipexole Dihydrochloride] 1 mg PO DAILY 08/27/15 Escitalopram Oxalate [Lexapro] 20 mg PO DAILY 04/26/16 Multivitamin [One Daily] 1 each PO DAILY 04/26/16 - Social History Travel Outside of [place] in the Last 3 Months?: No Smoking Status: Heavy tobacco smoker (5 or more cigarettes/day or daily pipe/ cigar) (Smoker; previously cigarettes but now only vapor e-cigarettes.) Social History: Denies: Alcohol Use, Substance Use Disorder - Family History Reports: Hypertension, Diabetes, Cancer (Father: colon cancer. Mother: liver cancer.), Cardiac Disorders. Denies: Stroke - Review of Systems Constitutional: negative: Chills, Fever - Physical Exam Constitutional: Alert (Awake), No apparent distress Oriented to: Time, Person, Place Exam: Last Vital Signs Temp 98.2 F 04/26/16 11:24 Pulse 72 04/26/16 11:24 Resp 18 04/26/16 11:24 BP 173/65 04/26/16 11:24 Pulse Ox 97 04/26/16 11:24 Intake & Output 04/25/16 04/26/16 04/26/16 23:59 07:59 15:59 Patient's weight 89.403 kg - HEENT Head: Normal ( normocephalic) Eye: Normal (PERRL, EOMI, Sclera white) Oropharynx: Normal (Pharynx:Moist without exudate,Gums-no swelling) Tympanic Membrane: Normal ENT EAC: Normal TMJ: Normal Nose: No Symptoms Reported (septum midline) - Respiratory/Cardiovascular Respiratory: Normal - CTA (clear to auscultation without adventitious sounds) - GI Auscultation: Normal (NABS) Palpation: Normal (Soft,No rebound or guarding, non distended) Tenderness: Non tender - Musculoskeletal Back: Normal (Non-Tender) Extremities: Normal (Normal tone, Pulses 2+ No cyanosis or edema, FROM) - Integumentary Skin: Normal, Warm, Dry Lymphatics: Normal (no adenopathy) - Neurologic Memory Impaired: Normal Cerebellar: Normal Mood Description: Normal Perception: Normal - Other Exam Other Exam Findings: General Appearance: Well developed. Well nourished. In no acute distress. Lungs: Chest was not overinflated. Clear to auscultation. Poor air entry, few rhonchi Cardiovascular: Jugular Venous Distention: JVD not increased. Heart Rate And Rhythm: Normal. Tones are very distant. Heart Sounds: Normal. Murmurs: No murmurs were heard. Carotid Arteries: Carotid pulses were normal. No bruit in the carotid artery. Edema: Not present. Lower extremities pulses normal (including femoral popliteal and dorsalis pedis) . Musculoskeletal System: General/bilateral: No cyanosis of the fingers. Neurological: Oriented to time, place, and person. Nails: No clubbing of the fingernails. - Lab Results Laboratory Tests 04/26/16 04/26/16 04/26/16 00:16 00:16 00:16 WBC 7.6 RBC 4.83 Hgb 14.4 Hct 43.7 MCV 90 MCH 29.8 MCHC 32.9 L RDW 15.7 H Plt Count 289 MPV 8.0 Neut % (Auto) 80.0 H Lymph % (Auto) 17.5 [place] % (Auto) 1.6 L Eos % (Auto) 0.1 Baso % (Auto) 0.8 Absolute Neuts (auto) 6.08 Absolute Lymphs (auto) 1.29 PT 9.9 INR 1.0 APTT 26.8 D-Dimer Quant (PE/DVT) Sodium 136 L Potassium 4.4 Chloride 100 Carbon Dioxide 22 Anion Gap 18 H BUN 14 Creatinine 0.60 Estimated GFR (MDRD) > 60 Glucose 464 H* POC Capillary Glucose Calculated Osmolality 283 Calcium 9.6 Total Bilirubin 0.4 AST 42 H ALT 41 Alkaline Phosphatase 127 Troponin I < 0.01 [id number]-Iefzzkwyanb Pept 267 Total Protein 8.1 Albumin 4.3 Lipase 126 04/26/16 04/26/16 04/26/16 02:01 03:18 04:17 WBC RBC Hgb Hct MCV MCH MCHC RDW Plt Count MPV Neut % (Auto) Lymph % (Auto) [place] % (Auto) Eos % (Auto) Baso % (Auto) Absolute Neuts (auto) Absolute Lymphs (auto) PT INR APTT D-Dimer Quant (PE/DVT) 760 H Sodium Potassium Chloride Carbon Dioxide Anion Gap BUN Creatinine Estimated GFR (MDRD) Glucose POC Capillary Glucose 321 H Calculated Osmolality Calcium Total Bilirubin AST ALT Alkaline Phosphatase Troponin I 0.07 [id number]-Fkyllepiafa Pept Total Protein Albumin Lipase 04/26/16 04/26/16 04:52 06:16 WBC RBC Hgb Hct MCV MCH MCHC RDW Plt Count MPV Neut % (Auto) Lymph % (Auto) [place] % (Auto) Eos % (Auto) Baso % (Auto) Absolute Neuts (auto) Absolute Lymphs (auto) PT INR APTT D-Dimer Quant (PE/DVT) Sodium Potassium Chloride Carbon Dioxide Anion Gap BUN Creatinine Estimated GFR (MDRD) Glucose POC Capillary Glucose 257 H Calculated Osmolality Calcium Total Bilirubin AST ALT Alkaline Phosphatase Troponin I 0.12 [id number]-G-Vobrlwqvujk Pept Total Protein Albumin Lipase - Diagnostic Findings Electrocardiogram showed normal sinus rhythm, normal P interval, right bundle branch block, ST segment depression inferior lateral leads. - Assessment/Plan (1) Angina I20.9 - ANGINA PECTORIS, UNSPECIFIED Acute Comment: Lady presented with pain in the chest however pain was somewhat atypical. My conversation with her reveal however fairly typical angina pectoris. Being slowly getting worse. Any time she try to walk his patient called where she will get burning in the chest. When she did have a stress test done today stress test showed ischemia involving apical midportion of the anterior wall indicating presence of known proximal LAD disease. I had a long discussion about what to do in this situation. Will talk about 2 options medical therapy versus cardiac catheterization. Considering the fact that she does have metastasis of her colon cancer to her lungs as well as some issue of previously noncompliance I would favor medical therapy 1st. Will ask her to start taking baby aspirin every single day. I will put her on ranolazine. She required statin as well as in the office within week O2 and see how she does. She is scheduled already to see oncologist Dr. Gonzalez to talk about options for her primary problem which undoubtedly is colon cancer with metastasis to her lungs. (2) Coronary artery disease I25.10 - ATHSCL HEART DISEASE OF [place] CORONARY ARTERY W/O ANG PCTRS Comment: As proven by calcification of coronary arteries seen on CT scan as well as abnormal stress test showing ischemia involving apical midportion of the anterior wall. Lady prefers medical therapy and I agree with this approach at least initially secondary to her primary problem which is colon cancer with metastasis to her lungs. Will try to modify her risk factors and treat her appropriately. (3) Hypertension I10 - ESSENTIAL (PRIMARY) HYPERTENSION Comment: Blood pressure appears to be well control medications. (4) Diabetes mellitus type 2, uncontrolled E11.65 - TYPE 2 DIABETES MELLITUS WITH HYPERGLYCEMIA without complication, without intermediate use E11.65 - Type 2 diabetes mellitus with hyperglycemia Comment: The being addressed by primary care physicians and hospitalist team. Still not adequately controlled. (5) Metastatic colon cancer in female C78.5 - SECONDARY MALIGNANT NEOPLASM OF LARGE INTESTINE AND RECTUM Comment: She is scheduled to see oncologist Dr. Gonzalez to talk about options. <Electronically signed by Jairo Arriola MD> 04/26/16 [id number] CC:: ANITA
== END 2016-04-26 17:55 | disposition home or self-care (01) ==
LOC: ED 00:08 → PCU 05:56
PROVIDERS: ADMIT Internal Medicine; ATTEND Hospitalist
DX: I25.119 Atherosclerotic heart disease of native coronary artery with unspecified angina pectoris (principal); C18.9 Malignant neoplasm of colon, unspecified; C78.02 Secondary malignant neoplasm of left lung; C78.01 Secondary malignant neoplasm of right lung; E11.65 Type 2 diabetes mellitus with hyperglycemia; I10 Essential (primary) hypertension; E78.00 Pure hypercholesterolemia, unspecified; K21.9 Gastro-esophageal reflux disease without esophagitis; F32.9 Major depressive disorder, single episode, unspecified; F41.9 Anxiety disorder, unspecified; F17.290 Nicotine dependence, other tobacco product, uncomplicated; Z79.899 Other long term (current) drug therapy; R06.02 Shortness of breath
CPT/HCPCS: 36415; 71010; 71275; 78452; 80053; 82962; 83690; 83880; 84484; 85025; 85379; 85610; 85730; 93005; 93017; 94640; 96374; 96375; 99284; 99406; A4216; A9270; A9500; A9698; G0378; J1642; J2785; J1650; J3490